=== PATIENT | female | born 1935 | race Caucasian/White ===

== ENCOUNTER → 2017-04-05 | Outpatient (CLI) | payer MEDICARE, BC ==
[~2017-04-05] MED LIST: AMLO5TAB2 PO; AMLO5TAB22 PO; ATEN1TAB75 PO; ATEN50TA PO; CLON.5 PO; CLON0.5T PO; EFFE75CA PO; MIRA0.5T PO; PRAM0.12 PO; VALS160T4 PO; VALS1TAB65 PO; VENL37.595 PO
[2017-04-05 11:19] LABS: HEMATOCRIT 38.6 % (35.0-46.0); HEMOGLOBIN 13.1 GM/DL (11.6-15.3); MEAN CELL VOLUME 95.3 FL (80.0-100.0); MEAN CORPUSCULAR HEMOGLOBIN 32.3 PG (27.0-34.0); MEAN CORPUSCULAR HGB CONC 33.9 % (32.0-36.0); MEAN PLATELET VOLUME 7.1 FL (7.0-11.0); PLATELET COUNT 294 TH/MM3 (150-450); RED BLOOD COUNT 4.05 MIL/MM3 (4.00-5.30); WHITE BLOOD COUNT 5.6 TH/MM3 (4.0-11.0)
[2017-04-05 11:28] LABS: BACTERIA, URINE OCC /hpf; BILIRUBIN, URINE NEG (NEG); BLOOD, URINE SMALL (NEG); GLUCOSE,URINE NEG (NEG); HYALINE CAST, URINE 10 /lpf (RARE); KETONE, URINE NEG (NEG); NITRITE,URINE NEG (NEG); SQUAMOUS EPITHELIAL CELL URINE 1 /hpf (0-5); URINE COLOR LIGHT-YELLOW (YELLW/STRAW); URINE LEUKOCYTE ESTERASE NEG (NEG)
[2017-04-05 11:37] LABS: PROTHROMBIN TIME - PATIENT 9.8 SEC (9.8-11.6)
[2017-04-05 12:12] LABS: BICARBONATE 29.2 MEQ/L (21.0-32.0); CALCIUM 9.2 MG/DL (8.5-10.1); CREATININE 0.74 MG/DL (0.50-1.00)
--- NOTE | 2017-04-06 15:45 | EKG ---
Date Performed: 04/05/2017 Time Performed: 10:25:58 PTAGE: 81 years EKG: Atrial fibrillation Leftward axis Possible anterior infarct - age undetermined Possible lef t ventricular hypertrophy Lateral T wave changes are probably due to ventricular hypertrophy Low QRS voltages in precordial leads Abnormal ECG PREVIOUS TRACING : 01/24/2014 23.43 Compared to prior tracing no significant change DOCTOR: Georgi Sloan Interpretating Date/Time 04/06/2017 15:45:04
== END ==
LOC: CPRE 09:53
PROVIDERS: ATTEND Orthopaedic Surgery
DX: Z01.810 Encounter for preprocedural cardiovascular examination (principal); Z01.812 Encounter for preprocedural laboratory examination; M79.609 Pain in unspecified limb; M19.012 Primary osteoarthritis, left shoulder; I10 Essential (primary) hypertension
CPT/HCPCS: 36415; 80048; 81001; 85027; 85610; 85730; 87086; 93005

== ENCOUNTER 2017-04-20 05:17 | Inpatient (IN) | payer MEDICARE, BC ==
[~2017-04-20] VITALS: Ht 157.5 cm; Wt 68.7 kg
[~2017-04-20 05:17] MED LIST changes: -AMLO5TAB22 PO; -ATEN1TAB75 PO; -CLON.5 PO; -EFFE75CA PO; -MIRA0.5T PO; -VALS160T4 PO
[2017-04-20] MEDS ORDERED: POVIDONE IODINE 5% (ANTISEPSIS KIT) 4 APPLICATIONS EACH NARE PRN (05:45)
[2017-04-20] MEDS ORDERED: CHLORHEXIDINE GLUCONATE 2 % 1 PACK (2 CLOTHS) TOPICAL PRN (05:45)
[2017-04-20] MEDS ORDERED: TRANEXAMIC ACID INJ 690 MG in SODIUM CHLORIDE 0.9% INJ 100 ML IV SCH ×4 (05:45)
[2017-04-20] MEDS ORDERED: CHLORHEXIDINE GLUCONATE 4% SOLN 120 ML BTL TOPICAL SCH (05:45)
[2017-04-20] MEDS ORDERED: LACTATED RINGER'S 1000 ML IV PRN (05:45)
[2017-04-20] MEDS ORDERED: ceFAZolin 2 GM PREMIX 50 ML IV SCH (05:45)
[2017-04-20] MEDS ORDERED: METOPROLOL TARTRATE 25 MG TAB PO PRN (05:45)
[2017-04-20] MEDS ORDERED: SODIUM CHLORID 0.9% 500 ML IV PRN (05:45)
[2017-04-20] MEDS ORDERED: EXPAREL PERI-ARTICULAR INJECTION (TOTAL VOL. 60 ML) P-ARTICULR SCH ×2 (05:45)
[2017-04-20] MEDS ORDERED: APIX5TAB PO (05:58)
[2017-04-20] MEDS ORDERED: ATEN25TA PO (05:58)
[2017-04-20] MEDS ORDERED: GENTAMICIN SULFATE 80 MG/2 ML VIAL ONE (06:05)
[2017-04-20] MEDS ORDERED: FAMOTIDINE 20 MG/2 ML VIAL ONE (06:30)
[2017-04-20] MEDS ORDERED: ACETAMINOPHEN 1000 MG/100 ML 100 ML IV ONE (06:30)
[2017-04-20] MEDS ORDERED: ROPIVACAINE 0.5% PF INJ 30 ML VIAL ONE (06:34)
[2017-04-20] MEDS ORDERED: MORPHINE SULFATE 8 MG/ML INJ IV PUSH PRN (09:30)
[2017-04-20] MEDS ORDERED: MAGNESIUM HYDROXIDE SUSP 30 ML CUP PO PRN (09:30)
[2017-04-20] MEDS ORDERED: ONDANSETRON HCL 4 MG/2 ML VIAL IVP PRN (09:30)
[2017-04-20] MEDS ORDERED: Post-op Orders (for Pharmacy) XX ONE (09:30)
[2017-04-20] MEDS ORDERED: ACETAMINOPHEN/HYDROcodone 325 MG/7.5 MG TAB PO PRN ×2 (09:30)
[2017-04-20] MEDS ORDERED: TRANEXAMIC ACID INJ 0 MG in SODIUM CHLORIDE 0.9% INJ 100 ML IV SCH (09:30)
--- NOTE | 2017-04-20 09:43 | HHI.FF ---
Face to Face Verification Diagnosis: (1) Status post total replacement of left shoulder Occupational Therapy Left UE Weight Bearing: Non WB Left UE Range of Motion: Active ROM (active range of motion, active assisted range of motion and passive range of motion. See additional instructions.) Additional Instructions Total shoulder rehabilitation. Restrictions: Do not externally rotate beyond neutral until 6 weeks postoperatively. The patient is not too forcefully internally rotate until 6 weeks postoperatively. Active, active-assisted and passive range of motion within these parameters is acceptable. Forward flexion passive table slides. Nursing Nursing: Dressing changes (to begin on postoperative day 7.) Dressing Changes: Daily dressing change (to begin on postoperative day 7.), Coverderm/Primapore Additional Instructions Remove Steri-Strips on postoperative day 14. I have seen patient Ld Davila on 04/20/17. My clinical findings support the need for the requested home health care services because: Ltd mobility - disease progression Limited ability to care for self High risk of falls I certify that my clinical findings support that this patient is homebound because: Post-op weakness Unsteady gait/balance Unsafe to leave home unassisted Maria Del Carmen Soriano MD (Charles) Apr 20, 2017 09:43
[2017-04-20] MEDS ORDERED: HYDR-3580 PO (09:47)
--- NOTE | 2017-04-20 09:51 | HHI.PR ---
Immediate Post Op Note Procedure Date: Apr 20, 2017 Pre Op Diagnosis: (1) Primary osteoarthritis of left shoulder Post Op Diagnosis: (1) Primary osteoarthritis of left shoulder Surgeon: Hasmukh Soriano M.D. Tax Representative(s): JOVON Wong Procedure: Left total shoulder arthroplasty using [place] ReUnion prosthesis. Findings: There was severe osteoarthritis in the left shoulder with loss of articular cartilage to expose subchondral bone and with osteophytes. Specimen(s) removed: None Estimated blood loss: 50 mL Anesthesia: General, Regional Block (interscalene block), Local (bupivacaine liposomal) Drains: None IVF Patient Condition: Good Implant/Devices: SEE IMPLANT LOG (if applicable) Date/Time of Procedure: SEE SURGICAL CARE RECORD Maria Del Carmen Soriano MD (Charles) Apr 20, 2017 09:51
[2017-04-20] MEDS ORDERED: DO NOT ADM ANY ANTICOAGULANT DRUGS PRN (09:54)
[2017-04-20] MEDS ORDERED: MIDAZOLAM HCL 2 MG/2 ML VIAL ONE (10:08)
--- NOTE | 2017-04-20 10:15 | PD.OP ---
Operative Report Date of Surgery: Apr 20, 2017 Preoperative Diagnosis: (1) Primary osteoarthritis of left shoulder Postoperative Diagnosis: (1) Primary osteoarthritis of left shoulder Procedure: Left total shoulder arthroplasty using Gisel ReUnion prosthesis Anesthesia: Gen. endotracheal anesthesia with supplemental interscalene block regional and local with Exparel Surgeon: Hasmukh Soriano M.D. Recruiting Operations Consultant(s): JOVON Wong Operation and Findings: Indications and findings: This 81-year-old woman has had progressive increasing pain in her left shoulder with pain and difficulty in doing activities daily living. She has not responded to conservative, nonoperative methods including an anti-inflammatory agents exercise, intra-articular steroids, physical therapy and activity modification. Physical findings showed severe loss of motion in her shoulder with audible crepitation with obvious visible shifts in motion when going through a range of motion. X-rays showed severe osteoarthritis in the shoulder with osteophytes, loss of articular cartilage to bone on bone and some eburnation. Intraoperative findings: There was loss of articular cartilage to bone on bone with osteophytes and eburnation. Implants: This was a [place] ReUnion prosthesis. The humeral stem was a size 12 mm . The humeral head was a size 44 x 19 mm eccentric. The glenoid was a size 44 mm 4 peg. The cement was Simplex. The patient was brought to the clean-air operating suite and an interscalene block regional anesthetic was administered followed by a general endotracheal anesthetic. The patient was then placed into a beachchair position bolster under the shoulder. The shoulder was then prepped with alcohol, Hibiclens and ChloraPrep and draped in the usual manner with the shoulder draped free. An appropriate timeout procedure was carried out. An incision was made from the clavicle overlying the area of the coracoid process following the deltopectoral groove to the level of the anterior axillary fold. The incision was deepened through the subcutaneous tissues to the deltopectoral groove. The cephalic vein was protected and reflected laterally along with the deltoid. Anterior exposure was carried out. The distal vessels were identified and ligated. The axillary nerve was identified. The a Bankart self-retaining retractor was inserted under the edge of the conjoined tendon and deltoid. Dissection was then carried out to the rotator interval. This was then opened with the electrocautery and carried down to the upper portion of the subscapularis. A retractor was placed into the joint. The subscapularis was then detached from the lesser tuberosity. A suture was placed through this using #1 FiberWire. The subscapularis was then detached completely down to the lower and and a secondary suture placed with FiberWire at the distal end. The subscapularis was repaired retracted out of the way. The humeral head was inspected. Capsular dissection was carried down to the glenoid. Dissection was then carried out to the undersurface head to the level of the inferior capsule. This capsule capsular dissection was carried out to the 6 o'clock position and slightly beyond. The humeral head was carefully exposed and the shoulder dislocated. The resection guide was positioned at the anatomic neck and stabilized with pins according to the appropriate rotation. The humeral head was then removed with the oscillating saw. This was retained on the back table for sizing purposes. Further dissection was then carried out to the glenoid is moving the glenoid labrum and other soft tissues about the glenoid. Dissection was carried distally as well. This was carried to the 6 o' clock position as well. Humeral preparation was begun. Hand reaming was initiated starting with the initial entry reamer. This was increased by 1 mm increments up to the point where further reaming would not progress at 12 millimeters. Broaching was initiated starting with the broach 2 mm smaller than the reamed size and going in 1 mm increments up to 12 millimeters. The broach was left in place. Calcar planing was carried out by hand. Glenoid preparation was begun by identifying the center of the glenoid using the sizing prosthesis for a size 44 millimeter prosthesis. After this was marked, the initial drill hole was made initially with just a drill and then followed by the use of the centering guide. Reaming of the glenoid was then carried out with the appropriate size reamer. After this was completed the drill guide was positioned in place. The distal drill holes were then made. The secondary guide was then positioned in place and the secondary drill holes were made. The trial prosthesis/punch was impacted into place and then subsequently removed. The size appeared to be appropriate. The glenoid was then irrigated well with antibiotic solution. The drill holes were then dried. Simplex cement was then inserted into the drill holes followed by placement of the glenoid prosthesis. Excess cement was trimmed. Attention was then directed to the humerus. The trial prosthesis was placed onto the broach. The size for the head was determined to be 44 x 19 mm, eccentric. The shoulder was then taken through a range of motion to evaluate stability and mobility. There was excellent stability and excellent mobility. The offset was appropriate. The trial prosthesis was removed followed by removal broach. The medullary canal was irrigated well. The humeral component was then impacted into place and seated appropriately. The humeral head prosthesis was then positioned in place appropriately and impacted in place after cleaning and drying the receptacle for the trunnion. The shoulder was again taken through a range of motion and checked for stability and mobility which were again comparable to that with the trial. Local anesthesia was administered throughout the shoulder with bupivacaine liposomal. Wound closure then commenced using #1 FiberWire Yariel-Satinder sutures to reattach the subscapularis. The rotator interval was closed with #1 FiberWire [id number] sutures. Motion was again checked and found to be excellent. The deltopectoral interval was approximated with 0 Vicryl interrupted [id number] sutures. Subcutaneous tissues were closed with 2-0 Vicryl interrupted simple sutures with buried knots. Skin was closed with continuous subcuticular closure of 4-0 Monocryl. The wound was dressed with Steri-Strips followed by Optifoam silver impregnated dressing. The shoulder was placed into a cradle sling. The patient was transferred from the operating room to the recovery room in satisfactory condition having tolerated the procedure well. Counts are correct. Specimens: None. Estimated blood loss: 50 mL Maria Del Carmen Soriano MD (Charles) Apr 20, 2017 10:15
[2017-04-20] MEDS: LACTATED RINGER'S 1000 ML INJ 1,000 ML IV SCH ×2 (10:32→22:30)
--- NOTE | 2017-04-20 12:00 | RADRPT ---
EXAM DATE/TIME: 04/20/2017 10:20 [place] COMPARISON: No previous studies available for comparison. INDICATIONS : Post left shoulder surgery MEDICAL HISTORY : None. SURGICAL HISTORY : None. ENCOUNTER: Initial ACUITY: 1 day PAIN SCORE: 0/10 LOCATION: Left shoulder FINDINGS: Postoperative left shoulder replacement. No dislocation. Normal alignment. CONCLUSION: 1. Normal alignment post shoulder replacement. Rodrigue Jiménez MD on April 20, 2017 at 11:58 Board Certified Radiologist. This report was verified electronically.
[2017-04-20 15:10] VITALS: BP 127/68; PULSE 65; RESP 18; TEMP 95.5; O2SAT 98
--- NOTE | 2017-04-20 15:41 | PD.CONS ---
HPI Service [facility] Consult Requested By Dr. Soriano orthopedic service Reason for Consult Medical management Primary Care Physician Kings Sow MD Diagnoses: History of Present Illness Patient is a very pleasant 81-year-old female with known history of hypertension , restless leg syndrome. Patient has been having pain of the left shoulder ongoing for the past 8 months now followed closely by PCP. Had MRI done underwent steroid shots that helped temporarily and had physical therapy sessions. However increasing pain and decreasing range of motion prompted this surgery. Patient today is seen postop day 0 doing well very motivated with physical therapy no complains of pain. [facility] consulted for medical management. Medications as out patient review with patient and at bedside. On further history per patient was noted to be in atrial fibrillation about 2 weeks prior to admission on preop evaluation and was started on atenolol and and eliquis by Dr. Torres. Currently on exam is in normal sinus rhythm. Denies any history of CVA or CAD. Review of Systems Constitutional: DENIES: Diaphoretic episodes, Fatigue, Fever, Weight gain, Weight loss, Chills, Dizziness, Change in appetite, Night Sweats Endocrine: DENIES: Abnorml menstrual pattern, Heat/cold intolerance, Polydipsia , Polyuria, Polyphagia Eyes: DENIES: Blurred vision, Diplopia, Eye inflammation, Eye pain, Vision loss , Photosensitivity, Double Vision Ears, nose, mouth, throat: DENIES: Tinnitus, Hearing loss, Vertigo, Nasal discharge, Oral lesions, Throat pain, Hoarseness, Ear Pain, Running Nose, Epistaxis, Sinus Pain, Toothache, Odynophagia Respiratory: DENIES: Apneas, Cough, Snoring, Wheezing, Hemoptysis, Sputum production, Shortness of breath Cardiovascular: DENIES: Chest pain, Palpitations, Syncope, Dyspnea on Exertion , PND, Lower Extremity Edema, Orthopnea, Claudication Gastrointestinal: COMPLAINS OF: Abdominal pain, Black stools, Bloody stools, Constipation, Diarrhea, Nausea, Vomiting, Difficulty Swallowing, Anorexia Genitourinary: DENIES: Abnormal vaginal bleeding, Dysmenorrhea, Dyspareunia, Sexual dysfunction, Urinary frequency, Urinary incontinence, Urgency, Hematuria , Dysuria, Nocturia, Vaginal discharge Musculoskeletal: COMPLAINS OF: Joint pain, DENIES: Muscle aches, Stiffness, Joint Swelling, Back pain, Neck pain Integumentary: DENIES: Abnormal pigmentation, Pruritus, Rash, Nail changes, Breast masses, Breast skin changes, Nipple discharge Hematologic/lymphatic: DENIES: Bruising, Lymphadenopathy Immunologic/allergic: DENIES: Eczema, Urticaria Neurologic: DENIES: Abnormal gait, Headache, Localized weakness, Paresthesias, Seizures, Speech Problems, Tremor, Poor Balance Psychiatric: DENIES: Anxiety, Confusion, Mood changes, Depression, Hallucinations, Agitation, Suicidal Ideation, Homicidal Ideation, Delusions Past Family Social History Allergies: Coded Allergies: No Known Allergies (Unverified Allergy, Unknown, 04/20/17) Past Medical History Recent history of atrial fibrillation Hypertension Restless leg syndrome Past Surgical History Cataract surgery Reported Medications Eloquence 5 mg twice a day Atenolol 25 mg at bedtime Amlodipine 10 mg daily Valsartan 160 mg daily Lortab 7.5/325 Clonazepam 0.5 mg at bedtime Venlafaxine 37.5 mg daily Mirapex 0.125 mg daily Active Ordered Medications As stated above in reported medications Family History Noncontributory Social History No history of smoking No history of alcohol use Physical Exam Vital Signs Vital Signs Date Time Temp Pulse Resp B/P (MAP) Pulse Ox O2 Delivery O2 Flow Rate FiO2 04/20/17 14:00 98.2 54 18 131/63 (85) 99 Room Air 04/20/17 13:00 52 18 135/63 (87) 98 Room Air 04/20/17 12:00 51 18 121/60 (80) 96 Room Air 04/20/17 11:45 59 18 96 Room Air 04/20/17 11:30 56 16 130/58 (82) 95 Room Air 04/20/17 11:15 58 16 126/59 (81) 95 Room Air 04/20/17 11:00 56 16 118/58 (78) 95 Room Air 04/20/17 10:45 63 16 115/58 (77) 95 Room Air 04/20/17 10:30 66 16 107/58 (74) 96 Room Air 04/20/17 10:15 69 17 96 Room Air 04/20/17 10:00 70 17 113/63 (80) 100 Simple Mask 6 04/20/17 09:57 97.5 63 17 119/74 (89) 100 Simple Mask 6 04/20/17 06:05 98.9 64 20 157/70 (99) 100 Physical Exam GENERAL: This is a well-nourished, well-developed patient, in no apparent distress. SKIN: No rashes, ecchymoses or lesions. Cool and dry. HEAD: Atraumatic. Normocephalic. No temporal or scalp tenderness. EYES: Pupils equal round and reactive. Extraocular motions intact. No scleral icterus. No injection or drainage. ENT: Nose without bleeding,Throat without erythema Airway patent. NECK: Trachea midline. No JVD or lymphadenopathy. Supple, nontender, no meningeal signs. CARDIOVASCULAR: Regular rate and rhythm without murmurs, gallops, or rubs. RESPIRATORY: Clear to auscultation. Breath sounds equal bilaterally. No wheezes , rales, or rhonchi. GASTROINTESTINAL: Abdomen soft, non-tender, nondistended.. No guarding. MUSCULOSKELETAL: Extremities without clubbing, cyanosis, or edema. No joint tenderness, effusion, or edema noted. No calf tenderness. Negative Homans sign bilaterally. Left upper extremity with sling and swath in place NEUROLOGICAL: Awake and alert. Cranial nerves II through XII intact. Motor and sensory grossly within normal limits. Five out of 5 muscle strength in all muscle groups. Normal speech. Imaging Last Impressions Shoulder X-Ray 04/20/17 0928 Signed Impressions: Service Date/Time: Thursday, April 20, 2017 10:20 - CONCLUSION: 1. Normal alignment post shoulder replacement. Rodrigue Jiménez MD Assessment and Plan Assessment and Plan [age] year-old female right handed Status post left total shoulder arthroplasty postop day 0 Orthopedic service following PT consult 10 History of atrial fibrillation likely paroxysmal now currently on exam is in sinus rhythm History of hypertension controlled Continue on atenolol 25 mg at bedtime, amlodipine 10 mg daily, valsartan 160 mg daily Continue on eliquis is 5 mg twice a day History of restless leg syndrome Continue clonazepam 0.5 mg at bedtime, venlafaxine 37.5 mg daily and 0.125 mg daily Patient up and ambulating. Thank you for this consult we'll follow patient in- house with you Mariel Sanderson MD Apr 20, 2017 15:41
[2017-04-20 17:00] VITALS: O2SAT 96
[2017-04-20] MEDS: KETOROLAC TROMETHAMINE 30 MG/ML (IVP) VIAL IVP SCH ×2 (17:32→20:29)
[2017-04-20] MEDS ORDERED: clonazePAM 0.5 MG TAB PO SCH (21:00)
[2017-04-20] MEDS ORDERED: ATENOLOL 25 MG TAB PO SCH (21:00)
[2017-04-20] MEDS ORDERED: PRAMIPEXOLE DIHYDROCHLORIDE 0.25 MG TAB PO SCH (21:00)
[2017-04-20] MEDS ORDERED: ZOLPIDEM TARTRATE 5 MG TAB PO PRN (21:00)
[2017-04-20 21:15] VITALS: BP 116/65; PULSE 56; RESP 16; TEMP 97.4; O2SAT 100
[2017-04-21 01:00] VITALS: BP 123/59; PULSE 63; RESP 16; TEMP 97.9; O2SAT 98
[2017-04-21] MEDS: KETOROLAC TROMETHAMINE 30 MG/ML (IVP) VIAL IVP SCH ×2 (02:43→09:30)
[2017-04-21 04:45] VITALS: BP 135/62; PULSE 62; RESP 16; TEMP 96.4; O2SAT 99
[2017-04-21] MEDS ORDERED: PROPOFOL 200 MG/20 ML AMP IV ONE (06:00)
[2017-04-21] MEDS ORDERED: LIDOCAINE HCL 1% PF 5 ML SYRINGE OTHER ONE (06:00)
[2017-04-21] MEDS ORDERED: NEOSTIGMINE 5 MG/5 ML SYRINGE IV PUSH ONE (06:00)
[2017-04-21] MEDS ORDERED: ONDANSETRON HCL 4 MG/2 ML VIAL IV ONE (06:00)
[2017-04-21] MEDS ORDERED: KETOROLAC TROMETHAMINE 30 MG/ML (IVP) VIAL IV PUSH ONE (06:00)
[2017-04-21] MEDS ORDERED: LACTATED RINGER'S 1000 ML INJ 1,000 ML IV ONE (06:00)
[2017-04-21] MEDS ORDERED: DEXAMETHASONE SOD PHOS 4 MG/ML VIAL IV ONE (06:00)
[2017-04-21] MEDS ORDERED: ROCURONIUM INJ 50 MG/5 ML SYRINGE IV PUSH ONE (06:00)
[2017-04-21] MEDS ORDERED: PHENYLEPHRINE HCL 10 MG/ML VIAL IV ONE (06:00)
[2017-04-21] MEDS ORDERED: GLYCOPYRROLATE 1 MG/5 ML SYRINGE IV PUSH ONE (06:00)
[2017-04-21] MEDS ORDERED: ePHEDrine/NS 25 MG/5 ML SYRINGE IV ONE (06:00)
--- NOTE | 2017-04-21 07:11 | PD.ORT.PN ---
Subjective Post Op Day #: 1 Subjective Remarks She is doing well. She has minimal complaints related to the shoulder. She is anxious to go home with home health care. Distance Walked 80 feet with physical therapy Objective Vitals Vital Signs Date Time Temp Pulse Resp B/P (MAP) Pulse Ox O2 Delivery O2 Flow Rate FiO2 04/21/17 04:45 96.4 62 16 135/62 (86) 99 04/21/17 01:00 97.9 63 16 123/59 (80) 98 04/20/17 21:15 97.4 56 16 116/65 (82) 100 04/20/17 17:00 96 21 04/20/17 15:10 95.5 65 18 127/68 (87) 98 04/20/17 14:00 98.2 54 18 131/63 (85) 99 Room Air 04/20/17 13:00 52 18 135/63 (87) 98 Room Air 04/20/17 12:00 51 18 121/60 (80) 96 Room Air 04/20/17 11:45 59 18 96 Room Air 04/20/17 11:30 56 16 130/58 (82) 95 Room Air 04/20/17 11:15 58 16 126/59 (81) 95 Room Air 04/20/17 11:00 56 16 118/58 (78) 95 Room Air 04/20/17 10:45 63 16 115/58 (77) 95 Room Air 04/20/17 10:30 66 16 107/58 (74) 96 Room Air 04/20/17 10:15 69 17 96 Room Air 04/20/17 10:00 70 17 113/63 (80) 100 Simple Mask 6 04/20/17 09:57 97.5 63 17 119/74 (89) 100 Simple Mask 6 I/O 04/20/17 04/20/17 04/20/17 04/21/17 04/21/17 04/21/17 07:00 15:00 23:00 07:00 15:00 23:00 Intake Total 1506 ml 580 ml 240 ml Output Total 785 ml Balance 721 ml 580 ml 240 ml Intake Oral 480 ml 240 ml IV Total 106 ml 100 ml Other 1400 ml Output Urine Total 735 ml Estimated Blood Loss 50 ml # Voids 1 2 3 # Bowel Movements 0 0 Imaging Last 24 hours Impressions Shoulder X-Ray 04/20/17 09 Signed Impressions: Service Date/Time: Thursday, April 20, 2017 10:20 - CONCLUSION: 1. Normal alignment post shoulder replacement. Rodrigue Jiménez MD Objective Remarks She is able to actively abduct the shoulder. She moves the shoulder relatively well. Her neurovascular status is intact. The dressing is dry and intact. Assessment & Plan Ortho Post Op Day #: 1 Problem List: (1) Primary osteoarthritis of left shoulder ICD Codes: M19.012 - Primary osteoarthritis, left shoulder Status: Resolved (2) Status post total replacement of left shoulder ICD Codes: Z96.612 - Presence of left artificial shoulder joint Plan: Continue postoperative care and therapy. Assessment and Plan Condition: Good. Orthopedically stable. DVT prophylaxis: TEDs, aspirin, sequentials. Discharge plans: Home with home health care. An appointment was scheduled through the office. Prescriptions: [place] 7.5/325 Findings and care have been discussed with the patient and her , who is at the bedside today. Maria Del Carmen Soriano MD (Charles) Apr 21, 2017 07:11
[2017-04-21 07:31] LABS: HEMATOCRIT 39.3 % (35.0-46.0); HEMOGLOBIN 13.8 GM/DL (11.6-15.3)
[2017-04-21 08:00] VITALS: BP 144/73; PULSE 62; RESP 16; TEMP 96.2; O2SAT 100
--- NOTE | 2017-04-21 08:01 | HHI.PR ---
Subjective Remarks no complains, good po pain controlled motivated with PT Objective Vitals Vital Signs Date Time Temp Pulse Resp B/P (MAP) Pulse Ox O2 Delivery O2 Flow Rate FiO2 04/21/17 04:45 96.4 62 16 135/62 (86) 99 04/21/17 01:00 97.9 63 16 123/59 (80) 98 04/20/17 21:15 97.4 56 16 116/65 (82) 100 04/20/17 17:00 96 21 04/20/17 15:10 95.5 65 18 127/68 (87) 98 04/20/17 14:00 98.2 54 18 131/63 (85) 99 Room Air 04/20/17 13:00 52 18 135/63 (87) 98 Room Air 04/20/17 12:00 51 18 121/60 (80) 96 Room Air 04/20/17 11:45 59 18 96 Room Air 04/20/17 11:30 56 16 130/58 (82) 95 Room Air 04/20/17 11:15 58 16 126/59 (81) 95 Room Air 04/20/17 11:00 56 16 118/58 (78) 95 Room Air 04/20/17 10:45 63 16 115/58 (77) 95 Room Air 04/20/17 10:30 66 16 107/58 (74) 96 Room Air 04/20/17 10:15 69 17 96 Room Air 04/20/17 10:00 70 17 113/63 (80) 100 Simple Mask 6 04/20/17 09:57 97.5 63 17 119/74 (89) 100 Simple Mask 6 I/O 04/20/17 04/20/17 04/20/17 04/21/17 04/21/17 04/21/17 07:00 15:00 23:00 07:00 15:00 23:00 Intake Total 1506 ml 580 ml 240 ml 100 ml Output Total 785 ml Balance 721 ml 580 ml 240 ml 100 ml Intake Oral 480 ml 240 ml IV Total 106 ml 100 ml 100 ml Other 1400 ml Output Urine Total 735 ml Estimated Blood Loss 50 ml # Voids 1 2 3 # Bowel Movements 0 0 Result Diagram: 04/21/17 07 Imaging Last Impressions Shoulder X-Ray 04/20/17927 Signed Impressions: Service Date/Time: Thursday, April 20, 2017 10:20 - CONCLUSION: 1. Normal alignment post shoulder replacement. Rodrigue Jiménez MD Objective Remarks awake and alert, oriented x 3 anicteric lungs- clear regular rhythm abdomen soft, nontender Left shoulder- post op dressing in place intact sensation -LUE/fingers LE no edema Procedures 04/19- left Total shourlder arthroplasty A/P Assessment and Plan [age] year-old female right handed Status post left total shoulder arthroplasty postop day #1 Orthopedic service following PT ff History of atrial fibrillation likely paroxysmal now currently on exam is in sinus rhythm History of hypertension controlled Continue on atenolol 25 mg at bedtime, amlodipine 10 mg daily, valsartan 160 mg daily Continue on eliquis is 5 mg twice a day History of restless leg syndrome Continue clonazepam 0.5 mg at bedtime, venlafaxine 37.5 mg daily and 0.125 mg daily Medically stable for DC Advise ff up with PCP on DC Mariel Sanderson MD Apr 21, 2017 08:01
[2017-04-21 08:29] VITALS: O2SAT 98
[2017-04-21] MEDS ORDERED: VALSARTAN 160 MG TAB PO SCH (09:00)
[2017-04-21] MEDS ORDERED: APIXABAN 5 MG TABLET PO SCH (09:00)
[2017-04-21] MEDS ORDERED: VENLAFAXINE HCL XR 37.5 MG CAP PO SCH (09:00)
[2017-04-21] MEDS ORDERED: ATENOLOL 50 MG TAB PO SCH (09:00)
[2017-04-21] MEDS ORDERED: INFLUENZA VIRUS VACCINE (QUADRIVALENT) 0.5 ML SYR IM ONE (10:00)
[2017-04-21] MEDS: LACTATED RINGER'S 1000 ML INJ 1,000 ML IV SCH (11:00)
[2017-04-21] MEDS ORDERED: DOCUSATE SODIUM 100 MG CAP PO SCH (21:00)
== END 2017-04-21 11:31 | disposition home health service (06) | DRG 483 ==
LOC: HSDI 05:17 → N06B 15:00
PROVIDERS: ADMIT Orthopaedic Surgery; ATTEND Orthopaedic Surgery
PROC: 3E0T3BZ Introduction of Anesthetic Agent into Peripheral Nerves and Plexi, Percutaneous Approach (ICD-10-PCS; 2017-04-20)
PROC: 0RRK0JZ Replacement of Left Shoulder Joint with Synthetic Substitute, Open Approach (ICD-10-PCS; principal; 2017-04-20 06:46)
DX: M19.012 Primary osteoarthritis, left shoulder (principal); I48.0 Paroxysmal atrial fibrillation; I10 Essential (primary) hypertension; M25.712 Osteophyte, left shoulder; G25.81 Restless legs syndrome; Z79.01 Long term (current) use of anticoagulants
CPT/HCPCS: 73030; 85014; 85018; 86850; 86900; 86901; 94150; C1776; C9290; J0131; J0690; J1100; J1580; J1885; J2250; J2370; J2405; J2710; J2795; J3010; J7120